=== PATIENT | female | born 1955 | race Caucasian/White ===

== ENCOUNTER 2016-02-15 10:34 | Emergency (ER) | payer SELFPAY ==
[~2016-02-15] VITALS: Ht 170.2 cm; Wt 59.4 kg
[~2016-02-15 10:34] MED LIST: ASPI81CH43 PO; OME20GT
[2016-02-15 11:37] LABS: Basophils # (auto) 0 uL; Basophils % (auto) 0.2 % (0.0-2.0); DEFINITIVE VIEW TRANSMISSION; Eosinophils # (auto) 0 uL; Hematocrit 41.1 % (36.0-46.0); Hemoglobin 13.8 g/dL (12.2-16.2); Lymphocytes # (auto) 1.7 uL; Lymphocytes % (auto) 11.9 % (10.0-50.0); Mean Corpuscular Hemoglobin 36.9 pg (28.0-32.0); Mean Corpuscular Hgb Conc. 33.5 g/dL (32.0-36.0); Mean Corpuscular Volume 110.3 fL (80.0-100.0); Monocytes # (auto) 0.7 uL; Neutrophils # (auto) 11.8 uL; Neutrophils % (auto) 82.9 % (37.0-80.0); Platelet Count (auto) 207 10^3/uL (140-450); Red Cell Distribution Width 12.8 % (11.6-16.0); White Blood Cell 14.2 10^3/uL (4.4-10.8)
[2016-02-15 11:59] LABS: Albumin 3.9 g/dL (3.4-5.0); BUN/Creatinine Ratio 21.1; Bilirubin, Total 0.7 mg/dL (0.2-1.0); Calcium 8.8 mg/dL (8.5-10.1); Potassium 4.1 mmol/L (3.5-5.1); Total Protein 7.6 g/dL (6.4-8.2)
[2016-02-15 13:17] VITALS: BP 137/77
[2016-02-15] MEDS ORDERED: traMADol HCL 50 MG TAB PO ONE (14:00)
[2016-02-15 14:03] LABS: Macrocytosis Moderate; Platelet Estimate Adequate; Stomatocytes Few
== END 2016-02-15 14:14 | disposition home or self-care (01) ==
LOC: ER 10:38
DX: S06.0X0A Concussion without loss of consciousness, initial encounter (principal); S00.83XA Contusion of other part of head, initial encounter; S80.212A Abrasion, left knee, initial encounter; R74.8 Abnormal levels of other serum enzymes; R42 Dizziness and giddiness; F17.210 Nicotine dependence, cigarettes, uncomplicated; Z79.82 Long term (current) use of aspirin; Z79.899 Other long term (current) drug therapy; W06.XXXA Fall from bed, initial encounter; Y93.89 Activity, other specified; Y92.89 Other specified places as the place of occurrence of the external cause; Y99.9 Unspecified external cause status
CPT/HCPCS: 36415; 70450; 80053; 85025; 93005

== ENCOUNTER 2016-07-23 14:03 | Emergency (ER) | payer SELFPAY ==
[~2016-07-23] VITALS: Ht 167.6 cm; Wt 59.0 kg
[2016-07-23 14:30] VITALS: BP 160/88
== END 2016-07-24 | disposition left against medical advice (07) ==
LOC: ER 14:03
DX: R53.1 Weakness (principal); Z53.21 Procedure and treatment not carried out due to patient leaving prior to being seen by health care provider
CPT/HCPCS: 93005

== ENCOUNTER 2016-09-10 09:39 | Emergency (ER) | payer MEDICAID ==
[~2016-09-10] VITALS: Ht 167.6 cm; Wt 58.5 kg
[2016-09-10] MEDS ORDERED: methylPREDNISolone SOD SUCC 125 MG/2 ML VL IV ONE (10:00)
[2016-09-10] MEDS ORDERED: SODIUM CHLORIDE 0.9% 1,000 ML IV ONE (10:23)
[2016-09-10] MEDS ORDERED: cefTRIAXone 1GM/50ML D5W 50 ML IV ONE (10:30)
[2016-09-10 10:43] VITALS: BP 112/71
[2016-09-10 11:02] LABS: Basophils # (auto) 0 uL; Basophils % (auto) 0.4 % (0.0-2.0); CONDITION Y; DEFINITIVE SEE PRINTOUT; Eosinophils # (auto) 0.1 uL; Eosinophils % (auto) 1.9 % (0.0-7.0); Hematocrit 40.6 % (36.0-46.0); Hemoglobin 13.9 g/dL (12.2-16.2); Lymphocytes % (auto) 29.7 % (10.0-50.0); Mean Corpuscular Hemoglobin 38.6 pg (28.0-32.0); Mean Corpuscular Hgb Conc. 34.3 g/dL (32.0-36.0); Mean Corpuscular Volume 112.5 fL (80.0-100.0); Mean Platelet Volume 8.4 fL (7.4-10.4); Monocytes # (auto) 0.4 uL; Neutrophils # (auto) 4.1 uL; Red Cell Distribution Width 13.4 % (11.6-16.0); White Blood Cell 6.7 10^3/uL (4.4-10.8)
[2016-09-10 11:05] LABS: Platelet Count (auto) 212 10^3/uL (140-450)
[2016-09-10 11:17] LABS: Albumin 3.8 g/dL (3.4-5.0); BUN/Creatinine Ratio 7.5; Bilirubin, Total 0.3 mg/dL (0.2-1.0); Calcium 8.8 mg/dL (8.5-10.1); Potassium 3.8 mmol/L (3.5-5.1); Total Protein 7.6 g/dL (6.4-8.2)
[2016-09-10] MEDS ORDERED: CALAMINE TOPical LOTION180 ML TOP ONE (11:30)
[2016-09-10 11:40] LABS: Urine Bilirubin Negative (Negative); Urine Blood Negative /uL (Negative); Urine Color Yellow (Yellow); Urine Glucose Normal (Normal); Urine Ketone Negative (Negative); Urine Nitrite Negative (Negative); Urine RBC 1 /hpf (0 - 4); Urine Squamous Epithelial Cell FEW /hpf (<5); Urine Urobilinogen Normal (Negative); Urine pH 5.5 (5.0-8.0)
== END 2016-09-10 12:31 | disposition home or self-care (01) ==
LOC: ER 09:39
DX: S51.811A Laceration without foreign body of right forearm, initial encounter (principal); T78.40XA Allergy, unspecified, initial encounter; N39.0 Urinary tract infection, site not specified; Z79.82 Long term (current) use of aspirin; F17.210 Nicotine dependence, cigarettes, uncomplicated; W22.8XXA Striking against or struck by other objects, initial encounter; Y93.89 Activity, other specified; Y92.89 Other specified places as the place of occurrence of the external cause; Y99.8 Other external cause status
CPT/HCPCS: 36415; 73090; 80053; 81001; 85025; 96365; 96375; 99285; J0696; J2930; J7030

== ENCOUNTER 2016-09-24 09:03 | Emergency (ER) | payer MEDICAID ==
[~2016-09-24] VITALS: Ht 167.6 cm; Wt 58.5 kg
[2016-09-24 10:24] VITALS: BP 128/72
== END 2016-09-24 11:50 | disposition home or self-care (01) ==
LOC: ER 09:03
DX: L23.9 Allergic contact dermatitis, unspecified cause (principal); F17.210 Nicotine dependence, cigarettes, uncomplicated

== ENCOUNTER 2017-07-06 14:32 | Emergency (ER) | payer MEDICAID ==
[~2017-07-06] VITALS: Ht 167.6 cm; Wt 59.0 kg
[2017-07-06] MEDS ORDERED: IBUPROFEN 600 MG TAB PO ONE ×2 (14:47→15:00)
[2017-07-06 14:49] VITALS: BP 145/89
[2017-07-06] MEDS ORDERED: cefTRIAXone SOD 1,000 MG VL IM ONE (16:15)
[2017-07-06] MEDS ORDERED: TETANUS-DIPTH-ACEL PERTUSSIS 0.5ML SYRG IM ONE (16:15)
[2017-07-06] MEDS ORDERED: LIDOCAINE 1% HCL (LOCAL ANESTH.) INJ 20ML MDV ONE (16:22)
[2017-07-06] MEDS ORDERED: LIDOCAINE 1% (LOCAL ANESTH.) PF 5ml SDV IJ ONE (16:30)
== END 2017-07-06 17:04 | disposition home or self-care (01) ==
LOC: ER 14:35
DX: S61.451A Open bite of right hand, initial encounter (principal); F17.210 Nicotine dependence, cigarettes, uncomplicated; F10.10 Alcohol abuse, uncomplicated; Z79.82 Long term (current) use of aspirin; W55.01XA Bitten by cat, initial encounter; Y93.89 Activity, other specified; Y92.89 Other specified places as the place of occurrence of the external cause; Y99.8 Other external cause status
CPT/HCPCS: 73130; 90471; 90715; 96372; 99284; J0696; J2001

== ENCOUNTER 2019-11-19 18:35 | Emergency (ER) | payer MEDICAID ==
[~2019-11-19] VITALS: Ht 167.6 cm; Wt 59.0 kg
[2019-11-19] MEDS ORDERED: ACETAMINOPHEN 500 MG TAB PO ONE (18:45)
[2019-11-19 20:17] VITALS: BP 157/88
[2019-11-19] MEDS ORDERED: HYDROcodone-ACET 5/325MG TAB PO ONE (20:30)
[2019-11-19] MEDS ORDERED: IBUPROFEN 800 MG TAB PO ONE (20:45)
== END 2019-11-19 20:58 | disposition home or self-care (01) ==
LOC: ER 18:35
DX: S83.91XA Sprain of unspecified site of right knee, initial encounter (principal); R07.89 Other chest pain; W01.0XXA Fall on same level from slipping, tripping and stumbling without subsequent striking against object, initial encounter; Y93.89 Activity, other specified; Y92.89 Other specified places as the place of occurrence of the external cause; Y99.8 Other external cause status
CPT/HCPCS: 71101; 73562